=== PATIENT | female | born 1955 | race Caucasian/White ===

== ENCOUNTER → 2023-08-26 09:35 | Outpatient (REF) | payer MEDICARE, OTHER, SELFPAY ==
[2023-08-26 10:26] LABS: % Basophils 0.8 % (0-2); % Eosinophils 1.9 % (0-6); % Immature Granulocytes 0.3 % (0-0.5); % Lymphocytes 21.5 % (20.5-51.1); % Monocytes 10.4 % (1.7-9.3); % Neutrophils 65.1 % (42.2-75.2); Absolute Eosinophils 0.1 10^3/uL (0-0.7); Absolute Lymphocytes 0.8 10^3/uL (1.2-3.4); Absolute Monocytes 0.4 10^3/uL (0.1-0.6); Absolute Neutrophils 2.4 10^3/uL (1.4-6.5); Hematocrit 41.1 % (37.0-47.0); Hemoglobin 13.6 g/dL (12.0-16.0); Mean Corp Hgb Conc. 33.1 g/dL (33.0-37.0); Mean Corpuscular Hgb 32.5 pg (27.0-31.0); Mean Corpuscular Volume 98.1 fL (81.0-99.0); Mean Platelet Volume 8.9 fL (7.4-10.4); Nucleated Red Blood Cells % 0 %; Platelet Count 231 10^3/uL (130-400); Red Blood Cell Count 4.19 10^6/uL (4.20-5.40); Red Cell Dist. Width 12.4 % (11.5-14.5); White Blood Cell Count 3.7 10^3/uL (4.8-10.8)
[2023-08-26 12:23] LABS: ALT (SGPT) 21 U/L (0-35); AST (SGOT) 28 U/L (14-36); Albumin 4.5 g/dl (3.5-5.0); Alkaline Phosphatase 79 U/L (38-126); Blood Urea Nitrogen 14 mg/dl (7-17); Calcium 9.6 mg/dl (8.4-10.2); Carbon Dioxide 29 mmol/L (22-30); Chloride 100 mmol/L (98-107); Glucose 93 mg/dl (70-99); Sodium 135 mmol/L (135-145); Total Bilirubin 0.7 mg/dl (0.2-1.3); Total Protein 6.8 g/dl (6.3-8.2); eGFR > 60.00
== END ==
LOC: REG 09:35
PROVIDERS: ATTENDING PHYSICIAN Internal Medicine Hematology & Oncology; FAMILY PHYSICIAN Nurse Practitioner Family
DX: C83.83 Other non-follicular lymphoma, intra-abdominal lymph nodes (principal); C20 Malignant neoplasm of rectum
CPT/HCPCS: 36415; 80053; 82378; 85025

== ENCOUNTER → 2024-02-25 09:41 | Outpatient (REF) | payer MEDICARE, OTHER, SELFPAY ==
[2024-02-25 10:47] LABS: % Basophils 0.5 % (0-2); % Eosinophils 1.6 % (0-6); % Immature Granulocytes 0.5 % (0-0.5); % Lymphocytes 18.6 % (20.5-51.1); % Monocytes 11.2 % (1.7-9.3); % Neutrophils 67.6 % (42.2-75.2); Absolute Eosinophils 0.1 10^3/uL (0-0.7); Absolute Lymphocytes 0.8 10^3/uL (1.2-3.4); Absolute Monocytes 0.5 10^3/uL (0.1-0.6); Absolute Neutrophils 2.9 10^3/uL (1.4-6.5); Hematocrit 37.9 % (37.0-47.0); Mean Corp Hgb Conc. 34.3 g/dL (33.0-37.0); Mean Corpuscular Hgb 32.2 pg (27.0-31.0); Mean Corpuscular Volume 93.8 fL (81.0-99.0); Mean Platelet Volume 8.9 fL (7.4-10.4); Nucleated Red Blood Cells % 0 %; Platelet Count 235 10^3/uL (130-400); Red Blood Cell Count 4.04 10^6/uL (4.20-5.40); Red Cell Dist. Width 12.3 % (11.5-14.5); White Blood Cell Count 4.3 10^3/uL (4.8-10.8)
[2024-02-25 11:21] LABS: ALT (SGPT) 18 U/L (0-35); AST (SGOT) 28 U/L (14-36); Albumin 4.5 g/dl (3.5-5.0); Alkaline Phosphatase 68 U/L (38-126); Blood Urea Nitrogen 14 mg/dl (7-17); Calcium 9.8 mg/dl (8.4-10.2); Carbon Dioxide 26 mmol/L (22-30); Chloride 100 mmol/L (98-107); Glucose 94 mg/dl (70-99); HDL Cholesterol 74 mg/dl; LDH 205 U/L (120-246); LDL Cholesterol, Calculated 131 mg/dl; Potassium 4.6 mmol/L (3.5-5.1); Sodium 137 mmol/L (135-145); Total Bilirubin 0.8 mg/dl (0.2-1.3); Total Cholesterol 222 mg/dl (50-199); Total Protein 6.8 g/dl (6.3-8.2); Triglyceride 89 mg/dl (10-149); Very Low Density Lipoprotein 17 mg/dl (0-30); eGFR > 60.00
[2024-02-25 11:32] LABS: CEA 0.59 ng/ml; TSH Reflex To Free T4 1.38 uIU/ml (0.47-4.68)
== END ==
LOC: REG 09:41
PROVIDERS: ATTENDING PHYSICIAN Internal Medicine Hematology & Oncology; FAMILY PHYSICIAN Nurse Practitioner Family
DX: C83.83 Other non-follicular lymphoma, intra-abdominal lymph nodes (principal); C20 Malignant neoplasm of rectum; Z01.818 Encounter for other preprocedural examination; Z78.0 Asymptomatic menopausal state; E78.00 Pure hypercholesterolemia, unspecified; R53.83 Other fatigue
CPT/HCPCS: 36415; 80053; 80061; 82378; 83615; 84443; 85025

== ENCOUNTER → 2024-04-15 14:49 | Outpatient (REF) | payer MEDICARE, OTHER, SELFPAY | LOC: WDC 14:49 | PROVIDERS: ATTENDING PHYSICIAN Nurse Practitioner Family | DX: Z12.31 Encounter for screening mammogram for malignant neoplasm of breast (principal) | CPT/HCPCS: 77063; 77067 ==

== ENCOUNTER → 2024-09-07 09:22 | Outpatient (REF) | payer MEDICARE, OTHER, SELFPAY ==
[2024-09-07 10:22] LABS: % Basophils 0.6 % (0-2); % Eosinophils 1.5 % (0-6); % Immature Granulocytes 0.2 % (0-0.5); % Lymphocytes 18.9 % (20.5-51.1); % Monocytes 12.2 % (1.7-9.3); % Neutrophils 66.6 % (42.2-75.2); Absolute Eosinophils 0.1 10^3/uL (0-0.7); Absolute Lymphocytes 0.9 10^3/uL (1.2-3.4); Absolute Monocytes 0.6 10^3/uL (0.1-0.6); Absolute Neutrophils 3.2 10^3/uL (1.4-6.5); Hematocrit 38.8 % (37.0-47.0); Hemoglobin 12.9 g/dL (12.0-16.0); Mean Corp Hgb Conc. 33.2 g/dL (33.0-37.0); Mean Corpuscular Hgb 32.7 pg (27.0-31.0); Mean Corpuscular Volume 98.2 fL (81.0-99.0); Nucleated Red Blood Cells % 0 %; Platelet Count 227 10^3/uL (130-400); Red Blood Cell Count 3.95 10^6/uL (4.20-5.40); Red Cell Dist. Width 12.4 % (11.5-14.5); White Blood Cell Count 4.8 10^3/uL (4.8-10.8)
[2024-09-07 11:20] LABS: ALT (SGPT) 15 U/L (0-35); AST (SGOT) 24 U/L (14-36); Albumin 4.1 g/dl (3.5-5.0); Alkaline Phosphatase 72 U/L (38-126); Blood Urea Nitrogen 16 mg/dl (7-17); Calcium 9.8 mg/dl (8.4-10.2); Carbon Dioxide 28 mmol/L (22-30); Chloride 99 mmol/L (98-107); Glucose 53 mg/dl (70-99); LDH 228 U/L (120-246); Potassium 4.8 mmol/L (3.5-5.1); Sodium 138 mmol/L (135-145); Total Bilirubin 0.8 mg/dl (0.2-1.3); Total Protein 6.3 g/dl (6.3-8.2); eGFR > 60.00
[2024-09-07 11:22] LABS: CEA 0.78 ng/ml
== END ==
LOC: REG 09:22
PROVIDERS: ATTENDING PHYSICIAN Internal Medicine Hematology & Oncology; FAMILY PHYSICIAN Nurse Practitioner Family
DX: C83.83 Other non-follicular lymphoma, intra-abdominal lymph nodes (principal); C20 Malignant neoplasm of rectum
CPT/HCPCS: 36415; 80053; 82378; 83615; 85025

== ENCOUNTER → 2024-10-08 07:01 | Outpatient (REF) | payer MEDICARE, OTHER, SELFPAY ==
[2024-10-08] VITALS (8 sets, daily range): BP systolic 60–130; BP diastolic 59–72; BMI 25.3
[2024-10-08 07:21] LABS: % Basophils 0.5 % (0-2); % Immature Granulocytes 0.3 % (0-0.5); % Lymphocytes 22.8 % (20.5-51.1); % Neutrophils 61.4 % (42.2-75.2); Absolute Eosinophils 0.1 10^3/uL (0-0.7); Absolute Lymphocytes 0.9 10^3/uL (1.2-3.4); Absolute Monocytes 0.5 10^3/uL (0.1-0.6); Absolute Neutrophils 2.4 10^3/uL (1.4-6.5); Hematocrit 37.8 % (37.0-47.0); Hemoglobin 12.7 g/dL (12.0-16.0); Mean Corp Hgb Conc. 33.6 g/dL (33.0-37.0); Mean Corpuscular Hgb 32.4 pg (27.0-31.0); Mean Corpuscular Volume 96.4 fL (81.0-99.0); Mean Platelet Volume 8.6 fL (7.4-10.4); Nucleated Red Blood Cells % 0 %; Platelet Count 216 10^3/uL (130-400); Red Blood Cell Count 3.92 10^6/uL (4.20-5.40); Red Cell Dist. Width 12.3 % (11.5-14.5); White Blood Cell Count 3.9 10^3/uL (4.8-10.8)
[2024-10-08 07:59] LABS: PT 13.5 Sec (11.4-14.6)
--- NOTE | 2024-10-08 08:20 | PTCARENOTE ---
Pt. for L4 bone biopsy. Per Dr. Melgoza, specimens to be placed in formalin.
--- NOTE | 2024-10-08 10:03 | PTCARENOTE ---
Unable to do procedure. Needle removed, site dressed and pt. returned to [facility] recovery
== END ==
LOC: SDS 07:01
PROVIDERS: ATTENDING PHYSICIAN Internal Medicine Hematology & Oncology; FAMILY PHYSICIAN Physician Assistant
DX: D68.8 Other specified coagulation defects (principal); D68.9 Coagulation defect, unspecified
CPT/HCPCS: 20225; 36415; 76380; 77002; 85025; 85610

== ENCOUNTER → 2024-10-19 14:41 | Outpatient (REF) | payer MEDICARE, OTHER, SELFPAY | LOC: RAD 14:41 | PROVIDERS: ATTENDING PHYSICIAN Family Medicine | DX: M25.511 Pain in right shoulder (principal) | CPT/HCPCS: 73030 ==

== ENCOUNTER → 2024-10-25 07:06 | Outpatient (REF) | payer MEDICARE, OTHER, SELFPAY ==
[2024-10-25] VITALS (16 sets, daily range): BP systolic 56–133; BP diastolic 58–91
== END ==
LOC: RADI 07:06
PROVIDERS: ATTENDING PHYSICIAN Internal Medicine Hematology & Oncology; FAMILY PHYSICIAN Family Medicine
DX: M89.8X8 Other specified disorders of bone, other site (principal); M54.9 Dorsalgia, unspecified; Z85.72 Personal history of non-Hodgkin lymphomas; Z85.048 Personal history of other malignant neoplasm of rectum, rectosigmoid junction, and anus
CPT/HCPCS: 88305; 88311; 20225; 77002; 88333; 88334; 88342

== ENCOUNTER → 2024-11-12 13:20 | Outpatient (REF) | payer MEDICARE, OTHER, SELFPAY ==
[2024-11-12 14:10] LABS: Hematocrit 37.1 % (37.0-47.0); Hemoglobin 12.6 g/dL (12.0-16.0); Mean Corp Hgb Conc. 34.0 g/dL (33.0-37.0); Mean Corpuscular Volume 96.1 fL (81.0-99.0); Nucleated Red Blood Cells % 0 %; Platelet Count 265 10^3/uL (130-400); Red Cell Dist. Width 12.1 % (11.5-14.5)
[2024-11-12 14:54] LABS: ALT (SGPT) 15 U/L (0-35); AST (SGOT) 23 U/L (14-36); Albumin 4.7 g/dl (3.5-5.0); Alkaline Phosphatase 90 U/L (38-126); Blood Urea Nitrogen 14 mg/dl (7-17); Calcium 9.8 mg/dl (8.4-10.2); Carbon Dioxide 29 mmol/L (22-30); Chloride 100 mmol/L (98-107); Glucose 102 mg/dl (70-99); LDH 290 U/L (120-246); Potassium 5.0 mmol/L (3.5-5.1); Sodium 135 mmol/L (135-145); Total Protein 7.2 g/dl (6.3-8.2); eGFR > 60.00
== END ==
LOC: REG 13:20
PROVIDERS: ATTENDING PHYSICIAN Nurse Practitioner Adult Health; FAMILY PHYSICIAN Family Medicine
DX: C20 Malignant neoplasm of rectum (principal); C83.83 Other non-follicular lymphoma, intra-abdominal lymph nodes
CPT/HCPCS: 36415; 72100; 72170; 80053; 83615; 85025

== ENCOUNTER → 2024-12-27 12:55 | Outpatient (REF) | payer MEDICARE, OTHER, SELFPAY | LOC: RCS 12:55 | PROVIDERS: ATTENDING PHYSICIAN Internal Medicine Hematology & Oncology | DX: C83.83 Other non-follicular lymphoma, intra-abdominal lymph nodes (principal); C20 Malignant neoplasm of rectum | CPT/HCPCS: 93306; 93356 ==

== ENCOUNTER → 2025-01-28 08:22 | Outpatient (REF) | payer MEDICARE, OTHER, SELFPAY ==
[2025-01-28 08:54] VITALS: BP 111/54; BP_SYST 68; BMI 25.2
[2025-01-28] MEDS: ANCEF 10 IV (09:38)
[2025-01-28 11:00] VITALS: BP 123/63; BP_SYST 73
[2025-01-28 11:15] VITALS: BP 126/67
[2025-01-28 11:25] VITALS: BP 126/60
== END ==
LOC: RADI 08:22
PROVIDERS: ATTENDING PHYSICIAN Internal Medicine Hematology & Oncology
DX: C20 Malignant neoplasm of rectum (principal)
CPT/HCPCS: 36561; 76937; 77001; 99152; 99153; C1788

== ENCOUNTER → 2025-02-07 08:26 | Outpatient (REF) | payer MEDICARE, OTHER, SELFPAY ==
[2025-02-07 11:23] LABS: Hematocrit 31.3 % (37.0-47.0); Hemoglobin 10.3 g/dL (12.0-16.0); Mean Corp Hgb Conc. 32.9 g/dL (33.0-37.0); Mean Corpuscular Volume 92.9 fL (81.0-99.0); Nucleated Red Blood Cells % 0 %; Platelet Count 54 10^3/uL (130-400); Red Cell Dist. Width 14.2 % (11.5-14.5)
== END ==
LOC: REG 08:26
PROVIDERS: ATTENDING PHYSICIAN Internal Medicine Hematology & Oncology; FAMILY PHYSICIAN Family Medicine
DX: C83.83 Other non-follicular lymphoma, intra-abdominal lymph nodes (principal); C20 Malignant neoplasm of rectum; C83.398 Diffuse large B-cell lymphoma of other extranodal and solid organ sites; C79.51 Secondary malignant neoplasm of bone
CPT/HCPCS: 36415; 85025

== ENCOUNTER → 2025-03-01 10:07 | Outpatient (REF) | payer MEDICARE, OTHER, SELFPAY ==
[2025-03-01 11:16] LABS: Hematocrit 30.5 % (37.0-47.0); Hemoglobin 9.6 g/dL (12.0-16.0); Mean Corp Hgb Conc. 31.5 g/dL (33.0-37.0); Mean Corpuscular Volume 99.7 fL (81.0-99.0); Nucleated Red Blood Cells % 0 %; Platelet Count 53 10^3/uL (130-400); Red Cell Dist. Width 16.4 % (11.5-14.5)
== END ==
LOC: REG 10:07
PROVIDERS: ATTENDING PHYSICIAN Internal Medicine Hematology & Oncology; FAMILY PHYSICIAN Family Medicine
DX: C83.83 Other non-follicular lymphoma, intra-abdominal lymph nodes (principal); C20 Malignant neoplasm of rectum; C83.398 Diffuse large B-cell lymphoma of other extranodal and solid organ sites; C79.51 Secondary malignant neoplasm of bone
CPT/HCPCS: 36415; 85025

== ENCOUNTER → 2025-03-21 08:23 | Outpatient (REF) | payer MEDICARE, OTHER, SELFPAY ==
[2025-03-21 10:22] LABS: ALT (SGPT) 16 U/L (0-35); AST (SGOT) 19 U/L (14-36); Albumin 4.6 g/dl (3.5-5.0); Alkaline Phosphatase 119 U/L (38-126); Blood Urea Nitrogen 18 mg/dl (7-17); Calcium 9.6 mg/dl (8.4-10.2); Carbon Dioxide 28 mmol/L (22-30); Chloride 96 mmol/L (98-107); Glucose 109 mg/dl (70-99); HDL Cholesterol 70 mg/dl; LDL Cholesterol, Calculated 126 mg/dl; Potassium 4.8 mmol/L (3.5-5.1); Sodium 131 mmol/L (135-145); Total Protein 7.0 g/dl (6.3-8.2); Very Low Density Lipoprotein 26 mg/dl (0-30); eGFR > 60.00
[2025-03-21 11:09] LABS: Hematocrit 33.0 % (37.0-47.0); Hemoglobin 10.6 g/dL (12.0-16.0); Mean Corp Hgb Conc. 32.1 g/dL (33.0-37.0); Mean Corpuscular Volume 101.5 fL (81.0-99.0); Nucleated Red Blood Cells % 0 %; Platelet Count 48 10^3/uL (130-400); Red Cell Dist. Width 16.7 % (11.5-14.5)
== END ==
LOC: REG 08:23
PROVIDERS: ATTENDING PHYSICIAN Internal Medicine Hematology & Oncology; OTHER PHYSICIAN Family Medicine
DX: C83.83 Other non-follicular lymphoma, intra-abdominal lymph nodes (principal); C20 Malignant neoplasm of rectum; C83.398 Diffuse large B-cell lymphoma of other extranodal and solid organ sites; C79.51 Secondary malignant neoplasm of bone; E78.00 Pure hypercholesterolemia, unspecified
CPT/HCPCS: 36415; 80053; 80061; 84443; 85025

== ENCOUNTER → 2025-03-28 12:10 | Outpatient (REF) | payer MEDICARE, OTHER, SELFPAY ==
[2025-03-28 13:18] LABS: Hematocrit 34.1 % (37.0-47.0); Hemoglobin 10.8 g/dL (12.0-16.0); Mean Corp Hgb Conc. 31.7 g/dL (33.0-37.0); Mean Corpuscular Volume 104.9 fL (81.0-99.0); Platelet Count 178 10^3/uL (130-400); Red Cell Dist. Width 17.3 % (11.5-14.5)
[2025-03-28 14:33] LABS: Nucleated Red Blood Cells % 0 %
== END ==
LOC: REG 12:10
PROVIDERS: ATTENDING PHYSICIAN Internal Medicine Hematology & Oncology
DX: C83.83 Other non-follicular lymphoma, intra-abdominal lymph nodes (principal); C20 Malignant neoplasm of rectum; C83.398 Diffuse large B-cell lymphoma of other extranodal and solid organ sites; C79.51 Secondary malignant neoplasm of bone
CPT/HCPCS: 36415; 85025

== ENCOUNTER → 2025-04-11 10:25 | Outpatient (REF) | payer MEDICARE, OTHER, SELFPAY ==
[2025-04-11 12:50] LABS: Hematocrit 29.8 % (37.0-47.0); Hemoglobin 9.7 g/dL (12.0-16.0); Mean Corp Hgb Conc. 32.6 g/dL (33.0-37.0); Mean Corpuscular Volume 106.0 fL (81.0-99.0); Nucleated Red Blood Cells % 0 %; Platelet Count 39 10^3/uL (130-400); Red Cell Dist. Width 14.7 % (11.5-14.5)
== END ==
LOC: REG 10:25
PROVIDERS: ATTENDING PHYSICIAN Internal Medicine Hematology & Oncology; FAMILY PHYSICIAN Family Medicine
DX: C83.83 Other non-follicular lymphoma, intra-abdominal lymph nodes (principal); C20 Malignant neoplasm of rectum; C83.398 Diffuse large B-cell lymphoma of other extranodal and solid organ sites; C79.51 Secondary malignant neoplasm of bone
CPT/HCPCS: 36415; 85025

== ENCOUNTER → 2025-04-12 14:53 | Outpatient (REF) | payer MEDICARE, OTHER, SELFPAY | LOC: WDC 14:53 | PROVIDERS: ATTENDING PHYSICIAN Family Medicine | DX: Z12.31 Encounter for screening mammogram for malignant neoplasm of breast (principal) | CPT/HCPCS: 77063; 77067 ==

== ENCOUNTER → 2025-04-19 12:13 | Outpatient (REF) | payer MEDICARE, OTHER, SELFPAY ==
[2025-04-19 13:27] LABS: Hematocrit 32.8 % (37.0-47.0); Hemoglobin 10.9 g/dL (12.0-16.0); Mean Corp Hgb Conc. 33.2 g/dL (33.0-37.0); Mean Corpuscular Volume 105.5 fL (81.0-99.0); Nucleated Red Blood Cells % 0 %; Platelet Count 201 10^3/uL (130-400); Red Cell Dist. Width 15.2 % (11.5-14.5)
== END ==
LOC: REG 12:13
PROVIDERS: ATTENDING PHYSICIAN Internal Medicine Hematology & Oncology; FAMILY PHYSICIAN Family Medicine
DX: C83.83 Other non-follicular lymphoma, intra-abdominal lymph nodes (principal); C20 Malignant neoplasm of rectum; C83.398 Diffuse large B-cell lymphoma of other extranodal and solid organ sites; C79.51 Secondary malignant neoplasm of bone
CPT/HCPCS: 36415; 85025

== ENCOUNTER → 2025-04-26 10:46 | Outpatient (REF) | payer MEDICARE, OTHER, SELFPAY ==
[2025-04-26 11:26] LABS: Hematocrit 31.8 % (37.0-47.0); Hemoglobin 10.7 g/dL (12.0-16.0); Mean Corp Hgb Conc. 33.6 g/dL (33.0-37.0); Mean Corpuscular Volume 104.6 fL (81.0-99.0); Nucleated Red Blood Cells % 0 %; Platelet Count 204 10^3/uL (130-400); Red Cell Dist. Width 14.3 % (11.5-14.5)
== END ==
LOC: REG 10:46
PROVIDERS: ATTENDING PHYSICIAN Internal Medicine Hematology & Oncology
DX: C83.83 Other non-follicular lymphoma, intra-abdominal lymph nodes (principal); C20 Malignant neoplasm of rectum; C83.398 Diffuse large B-cell lymphoma of other extranodal and solid organ sites; C79.51 Secondary malignant neoplasm of bone
CPT/HCPCS: 36415; 85025